=== PATIENT | female | born 1980 ===

== ENCOUNTER 2023-11-03 06:53 | Emergency (ER) | payer MEDICARE ==
[~2023-11-03] VITALS: Ht 162.6 cm; Wt 99.8 kg
[2023-11-03 07:25] LABS: BASOPHILS # (AUTO) 0.02 K/uL (0.00-0.20); BASOPHILS % (AUTO) 0.4 % (0.0-5.0); EOSINOPHILS # (AUTO) 0.19 K/uL (0.00-0.70); EOSINOPHILS % (AUTO) 3.5 % (0.0-8.0); IMMATURE GRANULOCYTE ABSOLUTE 0.01 K/uL (0-1); LYMPHOCYTES # (AUTO) 2.1 K/uL (1.0-4.8); LYMPHOCYTES % (AUTO) 39.5 % (21.0-51.0); MEAN CORPUSCULAR HEMOGLOBIN 27.6 pg (27.0-33.0); MEAN CORPUSCULAR HGB CONC 32.8 g/dL (32.0-36.0); MEAN CORPUSCULAR VOLUME 84.1 fL (79-99); MONOCYTES # (AUTO) 0.2 K/uL (0.1-1.0); MONOCYTES % (AUTO) 4.2 % (3.0-13.0); NEUTROPHILS # (AUTO) 2.8 K/uL (1.8-7.7); NEUTROPHILS % (AUTO) 52.2 % (40.0-77.0); PLATELET COUNT (AUTO) 199 K/uL (130-400); RED BLOOD CELL COUNT(AUTO) 4.64 MIL/uL (4.00-5.50); RED CELL DISTRIBUTION WIDTH 13.4 % (11.0-15.5); WHITE BLOOD COUNT (AUTO) 5.4 K/uL (4.8-10.8)
[2023-11-03 07:41] LABS: ALBUMIN 3.8 g/dL (3.5-5.0); BILIRUBIN,TOTAL 0.4 mg/dL (0.2-1.0); CREATININE 1.1 mg/dL (0.5-1.0); POTASSIUM 3.5 mmol/L (3.5-5.1); TOTAL PROTEIN, SERUM 7.9 g/dL (6.0-8.3)
[2023-11-03 07:42] LABS: APPEARANCE,URINE SL CLOUDY (CLEAR); BILIRUBIN,URINE NEGATIVE (NEGATIVE); COLOR,URINE YELLOW (YELLOW); GLUCOSE, URINE (UA) NEGATIVE (NEGATIVE); KETONES,URINE NEGATIVE (NEGATIVE); LEUKOCYTE ESTERASE ,URINE LARGE Leu/uL (NEGATIVE); NITRATE,URINE NEGATIVE (NEGATIVE); OCCULT BLOOD,URINE LARGE (NEGATIVE); PROTEIN,URINE 30 mg/dL (NEGATIVE); UROBILINOGEN,URINE 0.2 mg/dL (0.2-1.0)
[2023-11-03 08:23] LABS: HCG,QUALITATIVE URINE NEGATIVE (NEGATIVE)
[2023-11-03 08:26] LABS: ADD UA MICROSCOPIC YES
[2023-11-03 08:41] LABS: BACTERIA,URINE Moderate /HPF (None Seen)
[2023-11-03] MEDS ORDERED: CEPH500B PO (10:43)
[2023-11-03 10:57] VITALS: BP 122/70; PULSE 71; RESP 18; O2SAT 98
== END 2023-11-03 11:03 | disposition home or self-care (01) ==
LOC: EDH 06:53
DX: N30.00 Acute cystitis without hematuria (principal); N92.6 Irregular menstruation, unspecified; R79.89 Other specified abnormal findings of blood chemistry; G35 Multiple sclerosis
CPT/HCPCS: 36415; 76770; 76856; 80053; 81001; 81025; 85025; 87088